=== PATIENT | male | born 1975 | race Caucasian/White ===

== ENCOUNTER 2018-05-18 04:35 | Emergency (ER) | payer OTHER ==
[2018-05-18 04:53] VITALS: BP 126/85; PULSE 60; O2SAT 98
[2018-05-18] MEDS ORDERED: TORAdol 30 mg Injection IM ONE (05:07)
[2018-05-18] MEDS ORDERED: TORAdol 30 mg Injection ONE (05:10)
--- NOTE | 2018-05-18 05:12 | ERPHSYRPT ---
- History of Present Illness Time Seen by Provider: 05/18/18 04:57 Source: patient Exam Limitations: no limitations Patient Subjective Stated Complaint: pt is alert and oriented. pt is ambulatory. pt states he has pain in his left ankle and dull ache in his left leg. pt also states right heel pain. pt rates pain as a 5/10 when resting. when putting pressure on feet he rates his pain a 9/10. no redness, swelling, or obvious deformity noted. pt stated this pain started 3 days ago and has progressively gotten worse. Triage Nursing Assessment: see above Physician History: 43-year-old white male arrives with complaint of pain in his left ankle and pain on his right heel plantar surface symptoms 2 days. Patient denies any injury he has not had any fevers he states he has been soaking his feet without improvement. Past medical history includes chronic back pain, also with a history of narcolepsy. Past surgical history patient apparently had a spur in his calf which caused him pain in the past. Timing/Duration: day(s) (2 days) Severity: moderate Modifying Factors: Improves With: movement, other (palpation) Associated Symptoms: No nausea, No vomiting, No abdominal pain, No shortness of breath, No heartburn, No diaphoresis, No cough, No chills, No chest pain, No fever, No headaches, No loss of appetite, No malaise, No rash, No syncope, No seizure, No weakness Allergies/Adverse Reactions: No Known Drug Allergies Allergy (Unverified 08/02/13 20:28) Home Medications: Dextroamphetamine/Amphetamine [Adderall 20 mg Tablet] 20 mg PO DAILY 05/18/18 [ History] Fexofenadine HCl [Maddy] 30 mg PO DAILY 05/18/18 [History] Modafinil 100 mg [Provigil 100MG Tablet] 100 mg PO DAILY 05/18/18 [History ] Hx Tetanus, Diphtheria Vaccination/Date Given: Yes Hx Influenza Vaccination/Date Given: Yes (2012) Hx Pneumococcal Vaccination/Date Given: No Immunizations Up to Date: Yes - Review of Systems Constitutional: No Fever, No Chills Eyes: No Symptoms Ears, Nose, & Throat: No Symptoms Respiratory: No Cough, No Dyspnea Cardiac: No Chest Pain, No Edema, No Syncope Abdominal/Gastrointestinal: No Abdominal Pain, No Nausea, No Vomiting, No Diarrhea Genitourinary Symptoms: No Dysuria Musculoskeletal: Arthralgias, Joint Pain, Other (left ankle pain and right heel pain 2 days), No Back Pain, No Neck Pain, No Deformity, No Fall, No Injury, No Joint Redness, No Joint Swelling, No Myalgias Skin: No Rash Neurological: No Dizziness, No Focal Weakness, No Sensory Changes Psychological: No Symptoms Endocrine: No Symptoms All Other Systems: Reviewed and Negative - Past Medical History Pertinent Past Medical History: Yes Neurological History: No Pertinent History ENT History: No Pertinent History Cardiac History: No Pertinent History Respiratory History: No Pertinent History Endocrine Medical History: No Pertinent History Musculoskeletal History: Other GI Medical History: No Pertinent History History: No Pertinent History Psycho-Social History: No Pertinent History Male Reproductive Disorders: No Pertinent History Other Medical History: Unsure of musculoskeletal hx - Past Surgical History Past Surgical History: Yes Neuro Surgical History: No Pertinent History Cardiac: No Pertinent History Respiratory: No Pertinent History Gastrointestinal: No Pertinent History Genitourinary: No Pertinent History Musculoskeletal: Other Male Surgical History: No Pertinent History Other Surgical History: left calf, bone spur in tendon - Social History Smoking Status: Never smoker Exposure to second hand smoke: No Drug Use: none Patient Lives Alone: No - Nursing Vital Signs Nursing Vital Signs: Initial Vital Signs Temperature 97.6 F 05/18/18 04:43 Pulse Rate 60 05/18/18 04:43 Respiratory Rate 16 05/18/18 04:43 Blood Pressure 126/85 05/18/18 04:43 O2 Sat by Pulse Oximetry 98 05/18/18 04:43 Pain Scale Pain Intensity 5 - Physical Exam General Appearance: no apparent distress, alert Eye Exam: PERRL/EOMI, eyes nml inspection Ears, Nose, Throat Exam: normal ENT inspection, TMs normal, pharynx normal, moist mucous membranes Neck Exam: normal inspection, non-tender, supple, full range of motion Respiratory Exam: normal breath sounds, lungs clear, No respiratory distress Cardiovascular Exam: regular rate/rhythm, normal heart sounds, normal peripheral pulses Gastrointestinal/Abdomen Exam: soft, normal bowel sounds, No tenderness, No mass Back Exam: normal inspection, normal range of motion, No CVA tenderness, No vertebral tenderness Extremity Exam: other (patient's left ankle tender with movement, dorsal pedal posterior tibial pulses are intact and symmetrical bilaterally full range of motion all toes, good capillary refill all toes, sensation intact to all toes, right healed tender with palpation plantar surface) Neurologic 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 spurring at insertion of achilles tendon) Left Ankle X-ray Interpretation: Interpreted by me (xray left ankle: no fractures or subluxation, spurring at insertion of achiles tendon.) Ordered Tests: Active Orders 24 hr Category Date Time Status ANKLE (3 VIEWS) Stat Exams 05/18/18 05:07 Taken FOOT (MINIMUM 3 VIEWS) Stat Exams 05/18/18 05:06 Taken Medication Summary Discontinued Medications Generic Name Dose Route Start Last Admin Trade Name Josh PRN Reason Stop Dose Admin Ketorolac Tromethamine 60 mg 05/18/18 05:07 05/18/18 05:24 Toradol 30 Mg Injection IM 05/18/18 05:08 60 mg STAT ONE Administration Ketorolac Tromethamine Confirm 05/18/18 05:10 Toradol 30 Mg Injection Administered 05/18/18 05:11 Dose 60 mg .ROUTE .STK-MED ONE - Progress Progress: improved Progress Note: 05/18/18 05:38 43-year-old white male who states that he has some type of spurring in his calf in the past. Arrives with complaint of pain in his left ankle posteriorly in the plantar surface of his right heel symptoms for 2-3 days. He denies any injury. On x-ray the patient's left ankle shows spurring at the insertion site of the Achilles into the calcaneus. Patient also with a small amount of spurring on x-ray of the patient's right foot. Patient is tender with palpation plantar surface of the right heel. Patient also with tenderness in the area posterior left ankle with palpation and movement. Both feet are downgoing with squeezing the calf. Will go ahead and encourage patient to use heel pads bilaterally. Patient is given Toradol 60 mg IM. Will write for a small amount of [place] for pain. Patient advised to rest his left ankle and right foot apply cool packs. Patient has an orthopedist in [place] also family doctor, Dr. Kyle he is to follow-up with either his family doctor or his orthopedist. 05/18/18 05:45 Inspect was queried on this patient. Patient does receive prescriptions for modafinil however I do not see any narcotic analgesics prescribed to this patient recently. 05/18/18 05:46 I did offer the patient crutches with weightbearing as tolerated on the left foot patient does not want this at this time. - Departure Time of Disposition: 05:41 Departure Disposition: Home Clinical Impression: Right foot pain Left ankle pain Qualifiers: Chronicity: acute Qualified Code(s): M25.572 - Pain in left ankle and joints of left foot Condition: Fair Critical Care Time: No Referrals: TONY KYLE MD [Primary Care Provider] - Additional Instructions: Return home cool packs to right heel left ankle 24-48 hours. Use heel pads bilaterally. Naprosyn as directed. [place] as directed. Follow-up with your family doctor or your orthopedist call and make an appointment. Return for acute distress or for severe symptoms. Your x-rays have been preliminarily read, they will be reread later today. He' ll be contacted if any discrepancies are noted. Prescriptions: Hydrocodone/Acetaminophen [[place] 5-325 Tablet] 1 tab PO Q4-6HPRN PRN #12 tablet MDD 6 tablets PRN Reason: Pain Naproxen 500 mg [Naprosyn 500 MG] 500 mg PO BID #20 tablet
--- NOTE | 2018-05-18 08:50 | XRAY ---
Indication: Pain 2 days. No known injury. Comparison: None 3 nonweightbearing views of the right foot demonstrates small posterior heel spur and tiny medial malleolar tip well circumscribed ossification either degenerative versus old injury. No other bony, articular, or soft tissue abnormalities.
--- NOTE | 2018-05-18 08:50 | XRAY ---
Indication: Pain. No known injury. Comparison: None 3 views of the left ankle demonstrates large posterior heel spur. No other bony, articular, or soft tissue abnormalities.
== END 2018-05-18 05:57 | disposition home or self-care (01) ==
LOC: ED 04:35
DX: M25.572 Pain in left ankle and joints of left foot (principal); M79.671 Pain in right foot; Z79.899 Other long term (current) drug therapy
CPT/HCPCS: 73610; 73630; 96372; 99284; J1885

== ENCOUNTER 2021-12-23 11:00 | Emergency (ER) | payer BC, MEDICARE ==
[2021-12-23] MEDS ORDERED: Zofran 4 MG/2 ML VIAL IV ONE (11:22)
[2021-12-23] MEDS ORDERED: SUBLIMAZE 100 MCG/2 ML IV ONE (11:22)
[2021-12-23] MEDS ORDERED: Sodium Chloride 0.9% 1000 ML 1,000 ML IV STA (11:22)
[2021-12-23] MEDS ORDERED: Sodium Chloride 0.9% 1000 ML 1,000 ML ONE (11:38)
[2021-12-23 11:48] LABS: Absolute Neutrophil Ct (ANC) 3.51 x10^3/uL (1.4-6.9); Basophil (Absolute #) 0.07 x10^3/uL (0-0.4); Eosinophil % 2.9 % (0.00-5.0); Eosinophil (Absolute #) 0.16 x10^3/uL (0-0.5); Hematocrit 40.7 % (42-50); Hemoglobin 13.3 g/dL (12.5-18.0); Lymphocyte (Absolute #) 1.22 x10^3/uL (1.0-4.6); Lymphocytes % 22.2 % (24.0-44.0); Mean Cell Volume 87.3 fL (78-100); Mean Corpuscular Hemoglobin 28.5 pg (26-32); Mean Corpuscular Hgb Concent. 32.7 g/dL (32-36); Mean Platelet Volume 11.1 fL (7.5-11.0); Monocyte (Absolute #) 0.45 x10^3/uL (0.0-1.3); Monocytes % 8.2 % (0.0-12.0); Neutrophil % 63.8 % (36.0-66.0); Platelet Count 183 x10^3/uL (150-450); Red Blood Count 4.66 x10^6/uL (4.1-5.6); Red Cell Distribution Width 14.2 % (11.5-14.0); White Blood Count 5.5 x10^3/uL (4.0-10.5)
[2021-12-23 11:59] LABS: Appearance CLEAR (CLEAR); Bilirubin NEGATIVE (NEGATIVE); Dipstick done @ ? MAIN LAB; Glucose NEGATIVE (NEGATIVE); Ketones NEGATIVE (NEGATIVE); Nitrite NEGATIVE (NEGATIVE); Ph 5.5 (5-6); Protein,Urine Dip NEGATIVE (Negative); RBC NEGATIVE Ery/ul (0-5); Specific Gravity 1.025 (1.005-1.025); Urobilinogen 0.2 mg/dL (0-1)
[2021-12-23 12:02] LABS: Mucus SLIGHT /HPF (NEGATIVE); RBC 0-2 /HPF (0-2); WBC 0-2 /HPF (0-5)
--- NOTE | 2021-12-23 12:03 | ERPHSYRPT ---
- History of Present Illness Time Seen by Provider: 12/23/21 11:20 Source: patient Exam Limitations: no limitations Patient Subjective Stated Complaint: Headache Triage Nursing Assessment: Patient ambulated back to ED and transferred self to bed. Patient A+O X 3. Patient's skin pink, warm and dry. Patient complains of headache on and off since Wednesday. Patient states he felt an "explosion" in between his temples on Wednesday and has had a dull headache every since. Patient also light sensitive. Patient denies dizziness, N/V. Physician History: Patient is a 46-year-old white male who presents with a complaint of an explosive headache which occurred on Wednesday it was bilateral between the mormonism areas pain was bilateral it was increased by strenuous activity. He complains of blurred vision and feeling off and he has had a dull headache since with some photophobia. He has never had a similar type headache. He says he had COVID in 2019 and has not felt well since. He stopped his ADHD medicine and has gained some weight and has been increasingly short of breath with exertion. Timing/Duration: day(s) (4) Quality: aching, other (Explosive pain) Head Pain Location: temporal Severity of Pain-Max: severe Severity of Pain-Current: moderate Recent Head Trauma: occasional headaches (This headache is not similar to any headache he has ever had.) Modifying Factors: Improves With: exposure to light, movement Associated Symptoms: light-headedness, sensitive to light Previous symptoms: no prior history Allergies/Adverse Reactions: No Known Drug Allergies Allergy (Verified 12/23/21 11:11) Home Medications: Fexofenadine HCl [Maddy] 30 mg PO DAILY 05/18/18 [History] Modafinil 100 mg [Provigil 100MG Tablet] 200 mg PO DAILY 05/18/18 [History] Naproxen 500 mg [Naprosyn 500 MG] 500 mg PO DAILY 12/23/21 [History] Hx Tetanus, Diphtheria Vaccination/Date Given: Yes Hx Influenza Vaccination/Date Given: No Hx Pneumococcal Vaccination/Date Given: No Immunizations Up to Date: Yes Travel Risk - International Travel Have you traveled outside of the country in past 3 weeks: No - Coronavirus Screening Are you exhibiting any of the following symptoms?: No Close contact with a COVID-19 positive Pt in past 14-21 Days: No - Vaccine Status Have you recieved a Covid-19 vaccination: Yes 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 - Vaccination Dates Date of 2cond Vaccination (if applicable): na - Review of Systems Constitutional: No Fever, No Chills Eyes: Eye Pain, Photophobia Ears, Nose, & Throat: No Symptoms Respiratory: No Cough, No Dyspnea Cardiac: No Chest Pain, No Edema, No Syncope Abdominal/Gastrointestinal: No Abdominal Pain, No Nausea, No Vomiting, No Diarrhea Genitourinary Symptoms: No Dysuria Musculoskeletal: No Back Pain, No Neck Pain Skin: No Rash Neurological: Headache, No Dizziness, No Focal Weakness, No Sensory Changes Psychological: No Symptoms Endocrine: No Symptoms All Other Systems: Reviewed and Negative - Past Medical History Pertinent Past Medical History: Yes Neurological History: No Pertinent History ENT History: No Pertinent History Cardiac History: No Pertinent History Respiratory History: No Pertinent History Endocrine Medical History: No Pertinent History Musculoskeletal History: Other GI Medical History: No Pertinent History History: No Pertinent History Psycho-Social History: No Pertinent History Male Reproductive Disorders: No Pertinent History Other Medical History: Unsure of musculoskeletal hx - Past Surgical History Past Surgical History: Yes Neuro Surgical History: No Pertinent History Cardiac: No Pertinent History Respiratory: No Pertinent History Gastrointestinal: No Pertinent History Genitourinary: No Pertinent History Musculoskeletal: Other Male Surgical History: No Pertinent History Other Surgical History: left calf, bone spur in tendon - Social History Smoking Status: Never smoker Exposure to second hand smoke: No Drug Use: none Patient Lives Alone: No - Nursing Vital Signs Nursing Vital Signs: Initial Vital Signs Temperature 97.2 F 12/23/21 11:13 Pulse Rate 59 L 12/23/21 11:13 Respiratory Rate 18 12/23/21 11:13 Blood Pressure 163/111 12/23/21 11:13 O2 Sat by Pulse Oximetry 97 12/23/21 11:13 Pain Scale Pain Intensity 6 - Physical Exam General Appearance: mild distress Eye Exam: PERRL/EOMI Ears, Nose, Throat Exam: normal ENT inspection, moist mucous membranes Neck Exam: normal inspection, supple, full range of motion, No meningismus Respiratory Exam: normal breath sounds, lungs clear Cardiovascular Exam: regular rate/rhythm, normal heart sounds Gastrointestinal/Abdominal Exam: soft, No tenderness, No distention Back Exam: normal inspection, normal range of motion Mental Status Exam: alert, 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, 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: normal speech, PERRL, No facial droop Coordination/Gait Exam: normal finger to nose, normal cerebellar function Motor/Sensory Exam: no motor deficit, no sensory deficit Skin Exam: normal color, warm, dry, No rash SpO2 Interpretation: normal SpO2: 97 O2 Delivery: Room Air - Course Nursing assessment & vital signs reviewed: Yes - Radiology Exams Chest X-ray Interpretation: Negative - CT Exams Head CT Interpretation: Other (Negative) Ordered Tests: Active Orders 24 hr Category Date Time Status EKG-ER Only STAT Care 12/23/21 11:24 Active IV Insertion STAT Care 12/23/21 11:22 Active CHEST 1 VIEW (PORTABLE) Stat Exams 12/23/21 11:59 Completed HEAD WITHOUT CONTRAST [CT] Stat Exams 12/23/21 11:54 Completed CBC W DIFF Stat Lab 12/23/21 11:35 Completed CMP Stat Lab 12/23/21 11:35 Completed Erythrocyte Sedimentation Rate Stat Lab 12/23/21 11:35 Completed Lactic Acid Urgent Lab 12/23/21 11:40 Completed TROPONIN Q3H Lab 12/23/21 11:35 Completed TROPONIN Q3H Lab 12/23/21 14:30 Ordered TROPONIN Q3H Lab 12/23/21 17:30 Ordered TROPONIN Q3H Lab 12/23/21 20:30 Ordered TROPONIN Q3H Lab 12/23/21 23:30 Ordered UA W/RFX CULTURE Stat Lab 12/23/21 11:29 Completed Urine Triage Profile Stat Lab 12/23/21 11:29 Completed Medication Summary Discontinued Medications Generic Name Dose Route Start Last Admin Trade Name Josh PRN Reason Stop Dose Admin Fentanyl Citrate 75 mcg 12/23/21 11:22 12/23/21 11:44 Fentanyl Citrate 100 Mcg/2 Ml* Vial IV 12/23/21 11:23 Not Given STAT ONE Sodium Chloride 1,000 mls @ 999 mls/hr 12/23/21 11:22 12/23/21 12:43 Sodium Chloride 0.9% 1000 Ml IV 12/23/21 12:22 Infused .Q1H1M STA Infusion Sodium Chloride Confirm 12/23/21 11:38 Sodium Chloride 0.9% 1000 Ml Administered 12/23/21 11:39 Dose 1,000 mls @ ud .ROUTE .STK-MED ONE Ondansetron HCl 4 mg 12/23/21 11:22 12/23/21 11:44 Ondansetron Hcl 4 Mg/2 Ml Vial IV 12/23/21 11:23 Not Given STAT ONE Lab/Rad Data: Laboratory Result Diagrams 12/23/21 11:35 12/23/21 11:35 Laboratory Results 12/23/21 12/23/21 12/23/21 Range/Units 11:40 11:35 11:35 WBC (4.0-10.5) x10^3/uL RBC (4.1-5.6) x10^6/uL Hgb (12.5-18.0) g/dL Hct (42-50) % MCV (78-100) fL MCH (26-32) pg MCHC (32-36) g/dL RDW (11.5-14.0) % Plt Count (150-450) x10^3/uL MPV (7.5-11.0) fL Gran % (36.0-66.0) % Immature Gran % (Auto) (0.00-0.4) % Nucleat RBC Rel Count (0.00-0.1) % Eos # (Auto) (0-0.5) x10^3/uL Immature Gran # (Auto) (0.00-0.03) x10^3u/L Absolute Lymphs (auto) (1.0-4.6) x10^3/uL Absolute Monos (auto) (0.0-1.3) x10^3/uL Absolute Nucleated RBC (0.00-0.01) x10^3u/L Lymphocytes % (24.0-44.0) % Monocytes % (0.0-12.0) % Eosinophils % (0.00-5.0) % Basophils % (0.0-0.4) % Absolute Granulocytes (1.4-6.9) x10^3/uL Basophils # (0-0.4) x10^3/uL ESR (0-15) mm/hr Sodium (137-145) mmol/L Potassium (3.5-5.1) mmol/L Chloride (98-107) mmol/L Carbon Dioxide (22-30) mmol/L Anion Gap (5-15) MEQ/L BUN (9-20) mg/dL Creatinine (0.66-1.25) mg/dL Estimated GFR ML/MIN Glucose (74-106) mg/dL Lactic Acid 0.9 (0.4-2.0) Calcium (8.4-10.2) mg/dL Total Bilirubin (0.2-1.3) mg/dL AST (17-59) U/L ALT (0-50) U/L Alkaline Phosphatase (38-126) U/L Troponin I < 0.012 (0.000-0.034) ng/mL Serum Total Protein (6.3-8.2) g/dL Albumin (3.5-5.0) g/dL Urinalys Dipstick Clnc Urine Color (YELLOW) Urine Appearance (CLEAR) Urine pH (5-6) Ur Specific [place] (1.005-1.025) POC Urine Protein Conf (Negative) Urine Ketones (NEGATIVE) Urine Nitrite (NEGATIVE) Urine Bilirubin (NEGATIVE) Urine Urobilinogen (0-1) mg/dL Urine Leukocytes (NEGATIVE) Urine WBC (Auto) (0-5) /HPF Urine RBC (Auto) (0-2) /HPF U Epithel Cells (Auto) Urine Bacteria (Auto) Urine RBC (0-5) Gerardo/ul Urine Mucus (Auto) (NEGATIVE) /HPF Ur Culture Indicated? Urine Glucose (NEGATIVE) mg/dL Urine Opiates Level (NEGATIVE) Ur Methadone (NEGATIVE) Urine Barbiturates (NEGATIVE) Ur Phencyclidine (PCP) (NEGATIVE) Urine Amphetamine (NEGATIVE) U Benzodiazepine Level (NEGATIVE) Urine Marijuana (THC) (NEGATIVE) Influenza Type A Ag NEGATIVE (NEGATIVE) Influenza Type B Ag NEGATIVE (NEGATIVE) RSV (PCR) NEGATIVE (Negative) SARS-CoV-2 (PCR) NEGATIVE (NEGATIVE) 12/23/21 12/23/21 12/23/21 Range/Units 11:35 11:35 11:29 WBC 5.5 (4.0-10.5) x10^3/uL RBC 4.66 (4.1-5.6) x10^6/uL Hgb 13.3 (12.5-18.0) g/dL Hct 40.7 L (42-50) % MCV 87.3 (78-100) fL MCH 28.5 (26-32) pg MCHC 32.7 (32-36) g/dL RDW 14.2 H (11.5-14.0) % Plt Count 183 (150-450) x10^3/uL MPV 11.1 H (7.5-11.0) fL Gran % 63.8 (36.0-66.0) % Immature Gran % (Auto) 1.6 H (0.00-0.4) % Nucleat RBC Rel Count 0.0 (0.00-0.1) % Eos # (Auto) 0.16 (0-0.5) x10^3/uL Immature Gran # (Auto) 0.09 H (0.00-0.03) x10^3u/L Absolute Lymphs (auto) 1.22 (1.0-4.6) x10^3/uL Absolute Monos (auto) 0.45 (0.0-1.3) x10^3/uL Absolute Nucleated RBC 0.00 (0.00-0.01) x10^3u/L Lymphocytes % 22.2 L (24.0-44.0) % Monocytes % 8.2 (0.0-12.0) % Eosinophils % 2.9 (0.00-5.0) % Basophils % 1.3 (0.0-0.4) % Absolute Granulocytes 3.51 (1.4-6.9) x10^3/uL Basophils # 0.07 (0-0.4) x10^3/uL ESR 13 (0-15) mm/hr Sodium 137 (137-145) mmol/L Potassium 4.5 (3.5-5.1) mmol/L Chloride 107 (98-107) mmol/L Carbon Dioxide 20 L (22-30) mmol/L Anion Gap 15.2 H (5-15) MEQ/L BUN 15 (9-20) mg/dL Creatinine 0.96 (0.66-1.25) mg/dL Estimated GFR > 60.0 ML/MIN Glucose 121 H (74-106) mg/dL Lactic Acid (0.4-2.0) Calcium 9.4 (8.4-10.2) mg/dL Total Bilirubin 0.50 (0.2-1.3) mg/dL AST 47 (17-59) U/L ALT 59 H (0-50) U/L Alkaline Phosphatase 76 (38-126) U/L Troponin I (0.000-0.034) ng/mL Serum Total Protein 7.4 (6.3-8.2) g/dL Albumin 4.2 (3.5-5.0) g/dL Urinalys Dipstick Clnc MAIN LAB Urine Color YELLOW (YELLOW) Urine Appearance CLEAR (CLEAR) Urine pH 5.5 (5-6) Ur Specific [place] 1.025 (1.005-1.025) POC Urine Protein Conf NEGATIVE (Negative) Urine Ketones NEGATIVE (NEGATIVE) Urine Nitrite NEGATIVE (NEGATIVE) Urine Bilirubin NEGATIVE (NEGATIVE) Urine Urobilinogen 0.2 (0-1) mg/dL Urine Leukocytes NEGATIVE (NEGATIVE) Urine WBC (Auto) 0-2 (0-5) /HPF Urine RBC (Auto) 0-2 (0-2) /HPF U Epithel Cells (Auto) Not Reportable Urine Bacteria (Auto) Not Reportable Urine RBC NEGATIVE (0-5) Gerardo/ul Urine Mucus (Auto) SLIGHT (NEGATIVE) /HPF Ur Culture Indicated? NO Urine Glucose NEGATIVE (NEGATIVE) mg/dL Urine Opiates Level (NEGATIVE) Ur Methadone (NEGATIVE) Urine Barbiturates (NEGATIVE) Ur Phencyclidine (PCP) (NEGATIVE) Urine Amphetamine (NEGATIVE) U Benzodiazepine Level (NEGATIVE) Urine Marijuana (THC) (NEGATIVE) Influenza Type A Ag (NEGATIVE) Influenza Type B Ag (NEGATIVE) RSV (PCR) (Negative) SARS-CoV-2 (PCR) (NEGATIVE) 12/23/21 Range/Units 11:29 WBC (4.0-10.5) x10^3/uL RBC (4.1-5.6) x10^6/uL Hgb (12.5-18.0) g/dL Hct (42-50) % MCV (78-100) fL MCH (26-32) pg MCHC (32-36) g/dL RDW (11.5-14.0) % Plt Count (150-450) x10^3/uL MPV (7.5-11.0) fL Gran % (36.0-66.0) % Immature Gran % (Auto) (0.00-0.4) % Nucleat RBC Rel Count (0.00-0.1) % Eos # (Auto) (0-0.5) x10^3/uL Immature Gran # (Auto) (0.00-0.03) x10^3u/L Absolute Lymphs (auto) (1.0-4.6) x10^3/uL Absolute Monos (auto) (0.0-1.3) x10^3/uL Absolute Nucleated RBC (0.00-0.01) x10^3u/L Lymphocytes % (24.0-44.0) % Monocytes % (0.0-12.0) % Eosinophils % (0.00-5.0) % Basophils % (0.0-0.4) % Absolute Granulocytes (1.4-6.9) x10^3/uL Basophils # (0-0.4) x10^3/uL ESR (0-15) mm/hr Sodium (137-145) mmol/L Potassium (3.5-5.1) mmol/L Chloride (98-107) mmol/L Carbon Dioxide (22-30) mmol/L Anion Gap (5-15) MEQ/L BUN (9-20) mg/dL Creatinine (0.66-1.25) mg/dL Estimated GFR ML/MIN Glucose (74-106) mg/dL Lactic Acid (0.4-2.0) Calcium (8.4-10.2) mg/dL Total Bilirubin (0.2-1.3) mg/dL AST (17-59) U/L ALT (0-50) U/L Alkaline Phosphatase (38-126) U/L Troponin I (0.000-0.034) ng/mL Serum Total Protein (6.3-8.2) g/dL Albumin (3.5-5.0) g/dL Urinalys Dipstick Clnc Urine Color (YELLOW) Urine Appearance (CLEAR) Urine pH (5-6) Ur Specific [place] (1.005-1.025) POC Urine Protein Conf (Negative) Urine Ketones (NEGATIVE) Urine Nitrite (NEGATIVE) Urine Bilirubin (NEGATIVE) Urine Urobilinogen (0-1) mg/dL Urine Leukocytes (NEGATIVE) Urine WBC (Auto) (0-5) /HPF Urine RBC (Auto) (0-2) /HPF U Epithel Cells (Auto) Urine Bacteria (Auto) Urine RBC (0-5) Gerardo/ul Urine Mucus (Auto) (NEGATIVE) /HPF Ur Culture Indicated? Urine Glucose (NEGATIVE) mg/dL Urine Opiates Level NEGATIVE (NEGATIVE) Ur Methadone NEGATIVE (NEGATIVE) Urine Barbiturates NEGATIVE (NEGATIVE) Ur Phencyclidine (PCP) NEGATIVE (NEGATIVE) Urine Amphetamine NEGATIVE (NEGATIVE) U Benzodiazepine Level NEGATIVE (NEGATIVE) Urine Marijuana (THC) NEGATIVE (NEGATIVE) Influenza Type A Ag (NEGATIVE) Influenza Type B Ag (NEGATIVE) RSV (PCR) (Negative) SARS-CoV-2 (PCR) (NEGATIVE) - Progress Progress: improved Air Movement: good Blood Culture(s) Obtained: No Antibiotics given: Yes - Departure Departure Disposition: Home Clinical Impression: Sinusitis Condition: Stable Critical Care Time: No Referrals: TONY KYLE MD [Primary Care Provider] - Follow up/PCP as directed Instructions: Sinus Headache (DC) Prescriptions: Cephalexin Mh 500 mg [Keflex 500 mg] 500 mg PO QID 10 Days #40 cap Diclofenac Sodium 50 mg [Voltaren 50 mg] 50 mg PO TID 5 Days #15 cap
[2021-12-23 12:09] LABS: Erythrocyte Sedimentation Rate 13 mm/hr (0-15)
[2021-12-23 12:09] LABS: Urine Cultured Indicated? NO
[2021-12-23 12:11] LABS: ALBUMIN 4.2 g/dL (3.5-5.0); ALKALINE PHOSPHATASE 76 U/L (38-126); ANION GAP 15.2 MEQ/L (5-15); BLOOD UREA NITROGEN 15 mg/dL (9-20); CHLORIDE 107 mmol/L (98-107); Calcium 9.4 mg/dL (8.4-10.2); Carbon Dioxide 20 mmol/L (22-30); Creatinine 1 0.96 mg/dL (0.66-1.25); EST GLOMERULAR FILTRATION RATE > 60.0 ML/MIN; Glucose 121 mg/dL (74-106); Potassium 4.5 mmol/L (3.5-5.1); SGOT/AST 47 U/L (17-59); SGPT/ALT 59 U/L (0-50); SODIUM 137 mmol/L (137-145); Total Protein 7.4 g/dL (6.3-8.2)
--- NOTE | 2021-12-23 12:17 | XRAY ---
Indication: Headache 4 days. No known injury. Multiple contiguous axial images obtained through the head without contrast. Comparison: None Normal appearing brain parenchyma, ventricles, and bony calvarium for patient's age. 5 mm left maxillary sinus polyp/retention cyst and minimal mucosal thickening both maxillary sinuses. Mastoid air cells are clear. Impression: Normal CT head without contrast exam. Incidental paranasal sinus disease.
--- NOTE | 2021-12-23 12:17 | XRAY ---
Indication: Headache 4 days. Comparison: March 08, 2021 Portable chest remains clear. Heart remains upper limits normal for AP portable technique. Bony thorax intact. No new/acute findings.
[2021-12-23 12:20] LABS: Amphetamine,Urine NEGATIVE (NEGATIVE); Barbiturate,Urine NEGATIVE (NEGATIVE); Benzodiazepine,Urine NEGATIVE (NEGATIVE); Methadone,Urine NEGATIVE (NEGATIVE); Opiate,Urine NEGATIVE (NEGATIVE); PCP,Urine NEGATIVE (NEGATIVE); THC,Urine NEGATIVE (NEGATIVE)
[2021-12-23 12:25] LABS: INFLUENZA A NEGATIVE (NEGATIVE); INFLUENZA B NEGATIVE (NEGATIVE); RESPIRATORY SYNCTIAL VIRUS NEGATIVE (Negative); SARS-CoV-2 Xpert Express NEGATIVE (NEGATIVE)
[2021-12-23] MEDS ORDERED: ROCEPHIN 1 Gm-D5w 50 ml Bag** 1 G/50 ML IVPB IV STA (13:10)
[2021-12-23] MEDS ORDERED: ROCEPHIN 1 Gm-D5w 50 ml Bag** 1 G/50 ML IVPB IV ONE (13:10)
[2021-12-23 13:35] VITALS: BP 132/79; PULSE 59; O2SAT 99
== END 2021-12-23 13:35 | disposition home or self-care (01) ==
LOC: ED 11:00
DX: J32.0 Chronic maxillary sinusitis (principal); R51.9 Headache, unspecified; H53.8 Other visual disturbances; Z86.16 Personal history of COVID-19; Z79.899 Other long term (current) drug therapy
CPT/HCPCS: 0241U; 36000; 36415; 70450; 71045; 80053; 80307; 81015; 83605; 84484; 85025; 85652; 93005; 96360; 96374; 99284; J0696

== ENCOUNTER 2022-10-05 13:27 | Emergency (ER) | payer BC, MEDICARE ==
--- NOTE | 2022-10-05 13:38 | ERPHSYRPT ---
- History of Present Illness Time Seen by Provider: 10/05/22 13:38 Historian: patient Exam Limitations: no limitations Physician History: This is a 47-year-old white male who is never had any abdominal surgeries in the past and presents with right flank pain that began a few days ago but noticed radiation into his right lower quadrant into the right testicle area. It was much worse at 3:00 in the morning was sudden onset and woke him up. The pain has been intermittently worse but has never completely resolved. He has not noticed any hematuria. He has felt nausea and had vomiting episode with the pain was very severe and intense. He denies chest pain. He denies shortness of breath. Timing/Duration: today Activities at Onset: none Abdominal Pain Onset Location: RLQ, flank (Right), other (Pain into the right testicle) Pain Radiation: other (Pain into the right testicle) Severity of Pain-Max: moderate Severity of Pain-Current: mild (Moderate) Modifying Factors: Improves With: nothing Associated Symptoms: nausea, testicular pain (Right side), vomiting, No chest pain, No diarrhea, No fever/chills, No headache, No neck pain Previous symptoms: no prior history Allergies/Adverse Reactions: No Known Drug Allergies Allergy (Verified 10/05/22 13:45) Home Medications: Fexofenadine HCl [Maddy] 30 mg PO DAILY 05/18/18 [History] Modafinil 100 mg [Provigil 100MG Tablet] 200 mg PO DAILY 05/18/18 [History] Indomethacin 25 mg [Indocin 25 MG] 1 tab PO TID 10/05/22 [History] Hx Tetanus, Diphtheria Vaccination/Date Given: Yes Hx Influenza Vaccination/Date Given: No Hx Pneumococcal Vaccination/Date Given: No Travel Risk - International Travel Have you traveled outside of the country in past 3 weeks: No - Coronavirus Screening Are you exhibiting any of the following symptoms?: No Close contact with a COVID-19 positive Pt in past 14-21 Days: No - Vaccine Status Have you recieved a Covid-19 vaccination: Yes Advertising Executive: Moderna - Vaccination Dates Date of 2cond Vaccination (if applicable): na - Review of Systems Constitutional: No Symptoms Eyes: No Symptoms Ears, Nose, & Throat: No Symptoms Respiratory: No Symptoms Cardiac: No Symptoms Abdominal/Gastrointestinal: Abdominal Pain (Right lower quadrant) Genitourinary Symptoms: Flank Pain (Right flank), Testicle Pain (Right testicle) Musculoskeletal: No Symptoms Skin: No Symptoms Neurological: No Symptoms Psychological: No Symptoms Endocrine: No Symptoms Hematologic/Lymphatic: No Symptoms Immunological/Allergic: No Symptoms All Other Systems: Reviewed and Negative - Past Medical History Pertinent Past Medical History: Yes Neurological History: No Pertinent History ENT History: No Pertinent History Cardiac History: No Pertinent History Respiratory History: No Pertinent History Endocrine Medical History: No Pertinent History Musculoskeletal History: Other GI Medical History: No Pertinent History History: No Pertinent History Psycho-Social History: No Pertinent History Male Reproductive Disorders: No Pertinent History Other Medical History: Unsure of musculoskeletal hx - Past Surgical History Past Surgical History: Yes Neuro Surgical History: No Pertinent History Cardiac: No Pertinent History Respiratory: No Pertinent History Gastrointestinal: No Pertinent History Genitourinary: No Pertinent History Musculoskeletal: Other Male Surgical History: No Pertinent History Other Surgical History: left calf, bone spur in tendon - Social History Smoking Status: Never smoker Exposure to second hand smoke: No Drug Use: none Patient Lives Alone: No - Nursing Vital Signs Nursing Vital Signs: Initial Vital Signs Temperature 98.1 F 10/05/22 13:38 Pulse Rate 72 10/05/22 13:38 Respiratory Rate 21 10/05/22 13:38 Blood Pressure 141/89 10/05/22 13:38 O2 Sat by Pulse Oximetry 99 10/05/22 13:38 Pain Scale Pain Intensity 6 - Physical Exam General Appearance: no apparent distress, alert, anxiety, obese Eye Exam: PERRL/EOMI, eyes nml inspection Ears, Nose, Throat Exam: normal ENT inspection, moist mucous membranes Neck Exam: normal inspection, non-tender, supple, full range of motion Respiratory Exam: normal breath sounds, lungs clear, airway intact, No chest tenderness, No respiratory distress Cardiovascular Exam: regular rate/rhythm, normal heart sounds, normal peripheral pulses Gastrointestinal/Abdomen Exam: soft, normal bowel sounds, tenderness (Right lower quadrant), guarding (Right lower quadrant), No rebound Rectal Exam: not done Back Exam: normal inspection, normal range of motion, CVA tenderness (Right side), No vertebral tenderness Extremity Exam: normal inspection, normal range of motion, pelvis stable Neurologic Exam: alert, 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, cooperative, 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 as tested, normal mood/affect, nml cerebellar function, nml station & gait, sensation nml Skin Exam: normal color, warm, dry Lymphatic Exam: No adenopathy SpO2 Interpretation: normal - Course Nursing assessment & vital signs reviewed: Yes Ordered Tests: Active Orders 24 hr Category Date Time Status IV Insertion STAT Care 10/05/22 15:00 Active ABDOMEN AND PELVIS W/0 CONTRAS [CT] Stat Exams 10/05/22 15:00 Completed AMYLASE Stat Lab 10/05/22 15:32 Completed CBC W DIFF Stat Lab 10/05/22 15:32 Completed CMP Stat Lab 10/05/22 15:32 Completed CULTURE,URINE Stat Lab 10/05/22 15: Received LIPASE Stat Lab 10/05/22 15:32 Completed UA W/RFX UR CULTURE Stat Lab 10/05/22 15:27 Completed Medication Summary Discontinued Medications Generic Name Dose Route Start Last Admin Trade Name Freq PRN Reason Stop Dose Admin Hydromorphone HCl 1 mg 10/05/22 15:00 Hydromorphone 1 Mg/1ml Inj IV 10/05/22 15:01 STAT ONE Sodium Chloride 1,000 mls @ 999 mls/hr 10/05/22 15:00 10/05/22 16:32 Sodium Chloride 0.9% 1000 Ml IV 10/05/22 16:00 Infused .Q1H1M STA Infusion Sodium Chloride Confirm 10/05/22 15:23 Sodium Chloride 0.9% 1000 Ml Administered 10/05/22 15:24 Dose 1,000 mls @ ud .ROUTE .STK-MED ONE Ketorolac Tromethamine 30 mg 10/05/22 15:00 Ketorolac Tromethamine 30 Mg/Ml Inj IV 10/05/22 15:01 STAT ONE Ondansetron HCl 4 mg 10/05/22 15:00 Ondansetron Hcl 4 Mg/2 Ml Vial IV 10/05/22 15:01 STAT ONE Lab/Rad Data: Laboratory Result Diagrams 10/05/22 15:32 10/05/22 15:32 Laboratory Results 10/05/22 10/05/22 10/05/22 Range/Units 15:32 15:32 15:27 WBC 7.9 (4.0-10.5) x10^3/uL RBC 4.63 (4.1-5.6) x10^6/uL Hgb 12.6 (12.5-18.0) g/dL Hct 40.0 L (42-50) % MCV 86.4 (78-100) fL MCH 27.2 (26-32) pg MCHC 31.5 L (32-36) g/dL RDW 14.3 H (11.5-14.0) % Plt Count 234 (150-450) x10^3/uL MPV 10.6 (7.5-11.0) fL Gran % 76.6 H (36.0-66.0) % Immature Gran % (Auto) 0.8 H (0.00-0.4) % Nucleat RBC Rel Count 0.0 (0.00-0.1) % Eos # (Auto) 0.20 (0-0.5) x10^3/uL Immature Gran # (Auto) 0.06 H (0.00-0.03) x10^3u/L Absolute Lymphs (auto) 1.07 (1.0-4.6) x10^3/uL Absolute Monos (auto) 0.46 (0.0-1.3) x10^3/uL Absolute Nucleated RBC 0.00 (0.00-0.01) x10^3u/L Lymphocytes % 13.6 L (24.0-44.0) % Monocytes % 5.9 (0.0-12.0) % Eosinophils % 2.5 (0.00-5.0) % Basophils % 0.6 (0.0-0.4) % Absolute Granulocytes 6.01 (1.4-6.9) x10^3/uL Basophils # 0.05 (0-0.4) x10^3/uL Sodium 141 (137-145) mmol/L Potassium 4.3 (3.5-5.1) mmol/L Chloride 104 (98-107) mmol/L Carbon Dioxide 27 (22-30) mmol/L Anion Gap 14.7 (5-15) MEQ/L BUN 17 (9-20) mg/dL Creatinine 0.99 (0.66-1.25) mg/dL Estimated GFR > 60.0 ML/MIN Glucose 108 H (74-106) mg/dL Calcium 9.1 (8.4-10.2) mg/dL Total Bilirubin 0.40 (0.2-1.3) mg/dL AST 24 (17-59) U/L ALT 34 (0-50) U/L Alkaline Phosphatase 80 (38-126) U/L Serum Total Protein 7.5 (6.3-8.2) g/dL Albumin 4.2 (3.5-5.0) g/dL Amylase 80 (30-110) U/L Lipase 127 (23-300) U/L Urine Color Yellow (Yellow) Urine Appearance Clear (Clear) Urine pH 6.0 (4.6-8.0) Ur Specific [place] 1.015 (1.005-1.030) Urine Protein Negative (Negative) Urine Glucose (UA) Negative (Negative) mg/dL Urine Ketones Negative (Negative) Urine Blood Moderate A (Negative) Urine Nitrite Negative (Negative) Urine Bilirubin Negative (Negative) Urine Urobilinogen 0.2 (0.2) mg/dL Ur Leukocyte Esterase Trace A (Negative) U Hyaline Cast (Auto) NONE SEEN (0-2) /LPF Urine Microscopic RBC 21-50 A (0-5) /HPF Urine Microscopic WBC 0-2 (0-5) /HPF Ur Epithelial Cells None Seen (None Seen) /HPF Urine Bacteria None Seen (None Seen) /HPF Urine Culture Reflexed YES (NO) - Progress Progress: improved, pain not gone completely, re-examined Progress Note: 10/05/22 16:33 CT scan of the abdomen pelvis without contrast shows a 3 to 4 mm distal right ureteral calculus with minimal hydronephrosis. This patient's medical issue is 1 of moderate complexity. The level of complexity and the work-up performed based on review of the patient's past medical history, review of the patient's medication list, review of the patient's drug allergy list, history present illness and physical findings on examination. Work-up includes urinalysis, placement of intravenous line, infusion of 1 L of normal saline solution, CBC, CMP, amylase, lipase. The above-stated work-up results were reviewed by me and interpreted by me. The patient has a distal ureteral calculus that has a minimal obstructive uropathy present. We will discharge the patient home with prescription for Flomax and Percocet 5/325. Patient is to continue drinking clear liquids 10/05/22 16:37 CT scan of the abdomen pelvis also mentions that the appendix is visualized and normal. Counseled pt/family regarding: lab results, diagnosis, need for follow-up, rad results Medical Desision Making - Discussion of managment Agreed on:: Treatment plan, need for follow-up - Diagnostic Testing Diagnostic test were ordered, analyzed, and reviewed by me: Yes Radiological Interpretation: Reviewed by me, Teleradiologist Report - Risk of complications The pt has a mod risk of morbidity or mortality based on: Need for prescription drug management - Departure Departure Disposition: Home Clinical Impression: Right ureteral calculus Condition: Stable Critical Care Time: No Referrals: TONY KYLE MD [Primary Care Provider] - Follow up/PCP as directed Additional Instructions: Drink plenty of clear liquids. Take your usual medication as prescribed. Take your new medication as prescribed. Follow-up with your primary care provider for further evaluation management. Prescriptions: Oxycodone HCl/Acetaminophen [Percocet 5-325 mg Tablet] 1 each PO Q8H PRN PRN #6 tablet MDD 3 PRN Reason: Moderate To Severe Pain Tamsulosin HCl 0.4 mg [Flomax 0.4 MG] 0.4 mg PO DAILY #7 cap
[2022-10-05 13:45] VITALS: BP 141/89; PULSE 72; O2SAT 99
[2022-10-05] MEDS ORDERED: TORAdol 30 mg Injection IV ONE (15:00)
[2022-10-05] MEDS ORDERED: Hydromorphone 1 mg/ml Injection IV ONE (15:00)
[2022-10-05] MEDS ORDERED: Zofran 4 MG/2 ML VIAL IV ONE (15:00)
[2022-10-05] MEDS ORDERED: Sodium Chloride 0.9% 1000 ML 1,000 ML IV STA (15:00)
[2022-10-05] MEDS ORDERED: Sodium Chloride 0.9% 1000 ML 1,000 ML ONE (15:23)
[2022-10-05 15:30] LABS: Absolute Neutrophil Ct (ANC) 6.01 x10^3/uL (1.4-6.9); BASOPHIL % 0.6 % (0.0-0.4); Basophil (Absolute #) 0.05 x10^3/uL (0-0.4); Eosinophil % 2.5 % (0.00-5.0); Hemoglobin 12.6 g/dL (12.5-18.0); IMMATURE GRAN # 0.06 x10^3u/L (0.00-0.03); IMMATURE GRAN % 0.8 % (0.00-0.4); Lymphocyte (Absolute #) 1.07 x10^3/uL (1.0-4.6); Lymphocytes % 13.6 % (24.0-44.0); Mean Cell Volume 86.4 fL (78-100); Mean Corpuscular Hemoglobin 27.2 pg (26-32); Mean Corpuscular Hgb Concent. 31.5 g/dL (32-36); Mean Platelet Volume 10.6 fL (7.5-11.0); Monocyte (Absolute #) 0.46 x10^3/uL (0.0-1.3); Monocytes % 5.9 % (0.0-12.0); Neutrophil % 76.6 % (36.0-66.0); Platelet Count 234 x10^3/uL (150-450); Red Blood Count 4.63 x10^6/uL (4.1-5.6); Red Cell Distribution Width 14.3 % (11.5-14.0); White Blood Count 7.9 x10^3/uL (4.0-10.5)
[2022-10-05 15:35] LABS: Appearance Clear (Clear); Bacteria None Seen /HPF (None Seen); Bilirubin Negative (Negative); Blood Moderate (Negative); Epithelial Cells None Seen /HPF (None Seen); Glucose, Urine Negative (Negative); Hyaline Casts NONE SEEN /LPF (0-2); Ketones Negative (Negative); Leukocyte Esterase Trace (Negative); Nitrite Negative (Negative); Protein,Urine Dip Negative (Negative); RBC 21-50 /HPF (0-5); Specific Gravity 1.015 (1.005-1.030); Urobilinogen 0.2 mg/dL (0.2); WBC 0-2 /HPF (0-5)
[2022-10-05 15:36] LABS: ADD URINE CULTURE? YES (NO)
[2022-10-05 16:04] LABS: ALBUMIN 4.2 g/dL (3.5-5.0); ALKALINE PHOSPHATASE 80 U/L (38-126); AMYLASE 80 U/L (30-110); ANION GAP 14.7 MEQ/L (5-15); BLOOD UREA NITROGEN 17 mg/dL (9-20); CHLORIDE 104 mmol/L (98-107); Calcium 9.1 mg/dL (8.4-10.2); Carbon Dioxide 27 mmol/L (22-30); Creatinine 1 0.99 mg/dL (0.66-1.25); EST GLOMERULAR FILTRATION RATE > 60.0 ML/MIN; Glucose 108 mg/dL (74-106); LIPASE 127 U/L (23-300); Potassium 4.3 mmol/L (3.5-5.1); SGOT/AST 24 U/L (17-59); SGPT/ALT 34 U/L (0-50); SODIUM 141 mmol/L (137-145); Total Protein 7.5 g/dL (6.3-8.2)
--- NOTE | 2022-10-05 16:23 | XRAY ---
Indication: Right flank/right lower quadrant pain. Nausea and vomiting. Multiple contiguous axial images obtained through the abdomen and pelvis without contrast using renal stone protocol. Comparison: None Lung bases clear. Heart not enlarged. Distal right ureter demonstrates 3-4 mm calculus approximately 5 cm proximal to UVJ. Proximal right ureter minimally prominent up to 6 mm along with minimal hydronephrosis favors partial obstructive uropathy. Additional 2 right renal punctate calculi. Noncontrasted stomach and bowel loops appear nonobstructed. Normal appendix. No free fluid/air. Diffuse fatty liver. Gallbladder demonstrates a few tiny gallstones. Remaining liver, pancreas, adrenal glands, kidneys, ureters, bladder, and aorta are unremarkable for noncontrast exam. Osseous structures intact with mild L5-S1 degenerative disc disease and bilateral L3-L5 spondylolysis without listhesis. Impression: 1. 3-4 mm distal right ureter calculus producing partial obstruction. Additional right renal punctate calculi. 2. Incidental fatty liver, tiny gallstones, L5-S1 degenerative disc disease, and L3-L5 spondylolysis without listhesis.
[2022-10-05] MEDS ORDERED: Flomax 0.4 MG PO ONE (16:38)
[2022-10-05] MEDS ORDERED: Flomax 0.4 MG ONE (17:08)
== END 2022-10-05 17:18 | disposition home or self-care (01) ==
LOC: ED 13:27
DX: N13.2 Hydronephrosis with renal and ureteral calculous obstruction (principal); R10.31 Right lower quadrant pain; R11.2 Nausea with vomiting, unspecified; Z79.891 Long term (current) use of opiate analgesic; Z79.899 Other long term (current) drug therapy
CPT/HCPCS: 36000; 36415; 74176; 80053; 81001; 82150; 83690; 85025; 87086; 99284; A9270-GY

== ENCOUNTER 2024-03-26 02:34 | Emergency (ER) | payer BC, OTHER ==
--- NOTE | 2024-03-26 02:48 | ERPHSYRPT ---
- History of Present Illness Time Seen by Provider: 03/26/24 02:47 Source: patient, family Exam Limitations: no limitations Physician History: This is a 49-year-old white male patient of Dr. Kyle who presents to the emergency department by private vehicle escorted by his spouse secondary to posterior base of neck and upper back pain between the patient's shoulders with sharp shooting pain and numbness of the left upper extremities that is intermittent. His symptoms have worsened in the last 24 hours. He denies having any type of trauma that he recalls could have caused this. He denies chest pain he denies shortness of breath. He has no low back pain. Patient does have a history of prostate issues. Timing/Duration: hour(s) (In the last 24 hours), worse Method of Injury: unknown Quality: sharp Back Pain Location: C-spine, T-spine Severity of Pain-Max: moderate Severity of Pain-Current: moderate Modifying Factors: Improves With: movement Associated Symptoms: other (Numbness intermittent left upper extremity) Previous symptoms: no prior history, no recent treatment Allergies/Adverse Reactions: No Known Drug Allergies Allergy (Verified 10/05/22 13:45) Home Medications: Fexofenadine HCl [Maddy] 30 mg PO DAILY 05/18/18 [History] Modafinil 100 mg [Provigil 100MG Tablet] 200 mg PO DAILY 05/18/18 [History] Indomethacin 25 mg [Indocin 25 MG] 1 tab PO TID 10/05/22 [History] Hx Tetanus, Diphtheria Vaccination/Date Given: Yes Hx Influenza Vaccination/Date Given: No Hx Pneumococcal Vaccination/Date Given: No Travel Risk - International Travel Have you traveled outside of the country in past 3 weeks: No - Emerging Infectious Disease Are you exhibiting symptoms associated with any current EIDs: No - Review of Systems Constitutional: No Symptoms Eyes: No Symptoms Ears, Nose, & Throat: No Symptoms Respiratory: No Symptoms Cardiac: No Symptoms Abdominal/Gastrointestinal: No Symptoms Genitourinary Symptoms: No Symptoms Musculoskeletal: Back Pain (Upper thoracic), Neck Pain Skin: No Symptoms Neurological: Other (Intermittent numbness left upper extremity) Psychological: No Symptoms Endocrine: No Symptoms Hematologic/Lymphatic: No Symptoms Immunological/Allergic: No Symptoms All Other Systems: Reviewed and Negative - Past Medical History Pertinent Past Medical History: Yes Neurological History: No Pertinent History ENT History: No Pertinent History Cardiac History: No Pertinent History Respiratory History: No Pertinent History Endocrine Medical History: No Pertinent History Musculoskeletal History: Other GI Medical History: No Pertinent History History: No Pertinent History Psycho-Social History: No Pertinent History Male Reproductive Disorders: No Pertinent History Other Medical History: Unsure of musculoskeletal hx - Past Surgical History Past Surgical History: Yes Neuro Surgical History: No Pertinent History Cardiac: No Pertinent History Respiratory: No Pertinent History Gastrointestinal: No Pertinent History Genitourinary: No Pertinent History Musculoskeletal: Other Male Surgical History: No Pertinent History Other Surgical History: left calf, bone spur in tendon - Social History Smoking Status: Never smoker Exposure to second hand smoke: No Drug Use: none Patient Lives Alone: No - Nursing Vital Signs Nursing Vital Signs: Initial Vital Signs Pulse Rate 74 03/26/24 02:37 Respiratory Rate 20 03/26/24 02:37 Blood Pressure 134/77 03/26/24 02:37 O2 Sat by Pulse Oximetry 98 03/26/24 02:37 Pain Scale Pain Intensity [Upper Back] 10 Pain Intensity 4 - Physical Exam General Appearance: mild distress, alert, anxiety Eye Exam: PERRL/EOMI, eyes nml inspection Ears, Nose, Throat Exam: normal ENT inspection, moist mucous membranes Neck Exam: normal inspection, non-tender, supple, full range of motion Respiratory Exam: airway intact, No chest tenderness, No respiratory distress Gastrointestinal Exam: No tenderness Rectal Exam: not done Back Exam: normal inspection, normal range of motion, No CVA tenderness, No vertebral tenderness Extremity Exam: normal inspection, normal range of motion, pelvis stable, No deformities Neurologic Exam: alert, 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, cooperative, lab clerk II-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 nml as tested, nml cerebellar function, nml station & gait, sensation nml Skin Exam: normal color, warm, dry Lymphatic Exam: No adenopathy SpO2 Interpretation: normal O2 Delivery: Room Air - Course Nursing assessment & vital signs reviewed: Yes Ordered Tests: Active Orders 24 hr Category Date Time Status IV Insertion STAT Care 03/26/24 02:50 Active CERVICAL SPINE WO CONTRAST [CT] Stat Exams 03/26/24 02:49 Completed THORACIC SPINE W/O CONTRAST [CT] Stat Exams 03/26/24 02:49 Completed CBC W DIFF Stat Lab 03/26/24 03:16 Completed CMP Stat Lab 03/26/24 03:16 Completed Medication Summary Discontinued Medications Generic Name Dose Route Start Last Admin Trade Name Josh PRN Reason Stop Dose Admin Methylprednisolone Sodium 0 mg 03/26/24 02:54 03/26/24 03:03 Succinate 125 mg/ Sterile IV 03/26/24 02:55 125 mg Water 2 ml STAT ONE Administration Hydromorphone HCl 0.5 mg 03/26/24 02:53 03/26/24 03:03 Hydromorphone 1 Mg/1ml Inj IV 03/26/24 02:54 0.5 mg STAT ONE Administration Hydromorphone HCl Confirm 03/26/24 03:00 Hydromorphone 1 Mg/1ml Inj Administered 03/26/24 03:01 Dose 1 mg .ROUTE .STK-MED ONE Lorazepam 1 mg 03/26/24 02:56 03/26/24 03:04 Lorazepam 2 Mg/1 Ml 2 Mg Vial IV 03/26/24 02:57 1 mg STAT ONE Administration Lorazepam Confirm 03/26/24 03:00 Lorazepam 2 Mg/1 Ml 2 Mg Vial Administered 03/26/24 03:01 Dose 2 mg .ROUTE .STK-MED ONE Methylprednisolone Sodium Succinate Confirm 03/26/24 03:00 Methylprednis Sod Succ 125 Mg/2 Ml Vial Administered 03/26/24 03:01 Dose 125 mg .ROUTE .STK-MED ONE Ondansetron HCl 4 mg 03/26/24 02:53 03/26/24 03:03 Ondansetron Hcl 4 Mg/2 Ml Vial IV 03/26/24 02:54 4 mg STAT ONE Administration Ondansetron HCl Confirm 03/26/24 02:59 Ondansetron Hcl 4 Mg/2 Ml Vial Administered 03/26/24 03:00 Dose 4 mg .ROUTE .STK-MED ONE Sterile Water Confirm 03/26/24 02:59 Water For Injection,Sterile 10 Ml Vial Administered 03/26/24 03:00 Dose 10 ml IJ .STK-MED ONE Lab/Rad Data: Laboratory Result Diagrams 03/26/24 03:16 03/26/24 03:16 Laboratory Results 03/26/24 03/26/24 Range/Units 03:16 03:16 WBC 6.0 (4.23-9.07) x10^3/uL RBC 4.66 (4.63-6.08) x10^6/uL Hgb 11.4 L (13.7-17.5) g/dL Hct 36.2 L (40.1-51.0) % MCV 77.7 L (79.0-92.2) fL MCH 24.5 L (25.7-32.2) pg MCHC 31.5 L (32.3-36.5) g/dL RDW 15.8 H (11.6-14.4) % Plt Count 242 (163-337) x10^3/uL MPV 11.2 (9.4-12.4) fL Gran % 58.1 (34.0-67.9) % Immature Gran % (Auto) 1.0 H (0.001-0.429) % Nucleat RBC Rel Count 0.0 (0.00-0.2) % Eos # (Auto) 0.19 (0.04-0.54) x10^3/uL Immature Gran # (Auto) 0.06 H (0.001-0.031) x10^3u/L Absolute Lymphs (auto) 1.68 (1.32-3.57) x10^3/uL Absolute Monos (auto) 0.49 (0.30-0.82) x10^3/uL Absolute Nucleated RBC 0.00 (0.00-0.012) x10^3u/L Lymphocytes % 28.2 (21.8-53.1) % Monocytes % 8.2 (5.3-12.2) % Eosinophils % 3.2 (0.8-7.0) % Basophils % 1.3 H (0.2-1.2) % Absolute Granulocytes 3.46 (1.78-5.38) x10^3/uL Basophils # 0.08 (0.01-0.08) x10^3/uL Sodium 140 (135-145) mmol/L Potassium 3.9 (3.5-5.1) mmol/L Chloride 105 (98-107) mmol/L Carbon Dioxide 23 (22-30) mmol/L Anion Gap 15.9 H (5-15) MEQ/L BUN 14 (9-20) mg/dL Creatinine 1.08 (0.66-1.25) mg/dL Estimated GFR 85.2 ML/MIN Glucose 149 H (74-106) mg/dL Calcium 9.4 (8.4-10.2) mg/dL Total Bilirubin 0.30 (0.2-1.3) mg/dL AST 50 (17-59) U/L ALT 72 H (0-50) U/L Alkaline Phosphatase 90 (38-126) U/L Serum Total Protein 7.3 (6.3-8.2) g/dL Albumin 4.3 (3.5-5.0) g/dL - Progress Progress: improved, pain not gone completely Progress Note: 03/26/24 03:37 My medical decision making and the assignment of low to moderate complexity is based on review of the patient's past medical history, review of the patient's medication list, reviewed patient drug allergy list, history present illness and physical findings on examination. The workup includes CT scan of cervical spine, CT scan of thoracic spine, CBC, CMP, intravenous line placement, infusion of Dilaudid, infusion of Ativan, infusion of Zofran, infusion of Solu-Medrol. Differential diagnosis includes but is not limited to pinched nerve, bulging disc, severe degenerative disc disease 03/26/24 05:05 After the medication provided this patient, he states his pain has improved significantly but not completely resolved. I interpreted the patient's laboratory data results. Based on the laboratory data results, there are no acute, emergent medical issues. The CT scan of the cervical spine was interpreted by the radiologist and the results are as follows: 1. Straightened cervical curve 2. Multilevel anterior and posterior osteophytes 3. Unconvertebral joint hypertrophy with hypertrophic arthropathy. 4. Neuroforaminal stenosis C5-C6, C7-T1 (right greater than left). 5. Atlantoaxial degenerative changes. 6. No acute fracture or subluxation. The CT scan of the cervical spine was interpreted by the radiologist and the results are as follows: 1. Mild thoracic spondylosis. 2. No acute osseous abnormality Counseled pt/family regarding: lab results, diagnosis, need for follow-up, rad results Medical Desision Making - Independent Historian Additional History obtained from: Spouse - Diagnostic Testing Diagnostic test were ordered, analyzed, and reviewed by me: Yes Radiological Interpretation: Reviewed by me, Teleradiologist Report - Risk of complications The pt has a mod risk of morbidity or mortality based on: Need for prescription drug management - Departure Departure Disposition: Home Clinical Impression: Neuroforaminal stenosis of cervical spine, Thoracic spondylosis Condition: Stable Critical Care Time: No Referrals: TONY KYLE MD [Primary Care Provider] - Follow up/PCP as directed Additional Instructions: Take your medications as prescribed. Call your primary care provider tomorrow, 03/27/2024, to make arrangements for follow-up appointment to be seen in the next 2 to 3 days and discuss possible referral to a neurosurgeon/medical reimbursement specialist Prescriptions: Oxycodone HCl/Acetaminophen [Percocet 5-325 mg Tablet] 1 each PO Q8H PRN PRN #6 tablet MDD 3 PRN Reason: Moderate To Severe Pain Prednisone 10 mg [Deltasone 10 mg] 10 mg PO TID #12 tablet Orphenadrine Citrate 100 mg [Norflex 100 MG Tablet] 100 mg PO BID #10 tab
[2024-03-26 02:52] VITALS: RESP 20; TEMP 96.1
[2024-03-26] MEDS ORDERED: Zofran 4 MG/2 ML VIAL ONE (02:59)
[2024-03-26] MEDS ORDERED: Sterile H2O 10 ml IJ ONE (02:59)
[2024-03-26] MEDS ORDERED: solu-MEDROL ONE (03:00)
[2024-03-26] MEDS ORDERED: Hydromorphone 1 mg/ml Injection ONE (03:00)
[2024-03-26] MEDS ORDERED: Ativan 2 MG/1 ML VIAL ONE (03:00)
[2024-03-26] MEDS: solu-MEDROL 125 MG, Sterile H2O 10 ml 2 ML IV ONE (03:03)
[2024-03-26] MEDS: Zofran 4 MG/2 ML VIAL IV ONE (03:03)
[2024-03-26] MEDS: Hydromorphone 1 mg/ml Injection IV ONE (03:03)
[2024-03-26] MEDS: Ativan 2 MG/1 ML VIAL IV ONE (03:04)
[2024-03-26 03:18] LABS: Absolute Neutrophil Ct (ANC) 3.46 x10^3/uL (1.78-5.38); BASOPHIL % 1.3 % (0.2-1.2); Basophil (Absolute #) 0.08 x10^3/uL (0.01-0.08); Eosinophil % 3.2 % (0.8-7.0); Eosinophil (Absolute #) 0.19 x10^3/uL (0.04-0.54); Hematocrit 36.2 % (40.1-51.0); Hemoglobin 11.4 g/dL (13.7-17.5); IMMATURE GRAN # 0.06 x10^3u/L (0.001-0.031); Lymphocyte (Absolute #) 1.68 x10^3/uL (1.32-3.57); Lymphocytes % 28.2 % (21.8-53.1); Mean Cell Volume 77.7 fL (79.0-92.2); Mean Corpuscular Hemoglobin 24.5 pg (25.7-32.2); Mean Corpuscular Hgb Concent. 31.5 g/dL (32.3-36.5); Mean Platelet Volume 11.2 fL (9.4-12.4); Monocyte (Absolute #) 0.49 x10^3/uL (0.30-0.82); Monocytes % 8.2 % (5.3-12.2); Neutrophil % 58.1 % (34.0-67.9); Platelet Count 242 x10^3/uL (163-337); Red Blood Count 4.66 x10^6/uL (4.63-6.08); Red Cell Distribution Width 15.8 % (11.6-14.4)
[2024-03-26 03:32] LABS: ALBUMIN 4.3 g/dL (3.5-5.0); ANION GAP 15.9 MEQ/L (5-15); BILIRUBIN,TOTAL 0.3 mg/dL (0.2-1.3); Calcium 9.4 mg/dL (8.4-10.2); Creatinine 1 1.08 mg/dL (0.66-1.25); EST GLOMERULAR FILTRATION RATE 85.2 ML/MIN; Potassium 3.9 mmol/L (3.5-5.1); Total Protein 7.3 g/dL (6.3-8.2)
--- NOTE | 2024-03-26 04:35 | XRAY ---
CLINICAL HISTORY: Neck pain COMPARISON: None. TECHNIQUE: Multiple axial images of CT thoracic spine without contrast was submitted in bone and soft tissue window with coronal and sagittal reformats. One of the following dose reduction techniques were utilized for this exam: Automated exposure control, adjustment of the mA and/or kV according to patient size, and use of iterative reconstruction. CTDI: 57.04mGy, DLP: 2409.88mGy*cm. FINDINGS: Vertebrae: Straightened thoracic vertebrae. No fractures, lytic or sclerotic lesions. Normal bone density without evidence of osteopenia or osteoporosis. Mild thoracic spondylosis evident by small marginal lipping of the opposing vertebral endplates. Intervertebral Discs: Normal height and signal intensity of the intervertebral discs. No evidence of disc herniation, bulging, or significant degeneration. Spinal Canal and Neural Foramina: Spinal canal is of normal caliber with no evidence of spinal stenosis. Neural foramina are patent bilaterally at all levels. Facet Joints: Normal appearance of the facet joints. No evidence of facet arthropathy or significant degenerative changes. Soft Tissues: Normal appearance of the paraspinal soft tissues. No abnormal masses, fluid collections, or signs of inflammation. Suspected hepatic steatosis further ultrasound or dedicated CT abdominal study or advised if clinically indicated. Nonobstructing right renal mid-calyceal stones the largest measures 1.7 mm. IMPRESSION: 1. Mild thoracic spondylosis. 2. No acute osseous abnormality. 3. Suspected hepatic steatosis, further ultrasound, or dedicated CT abdominal study are advised if clinically indicated. 4. Nonobstructing right renal mid calyceal stones the largest measures 1.7 mm. Electronically Signed by: Stella Miranda MD. (03/26/2024 04:30:35 EST)
--- NOTE | 2024-03-26 04:49 | XRAY ---
CLINICAL HISTORY: Neck pain COMPARISON: No previous studies are available for comparison. TECHNIQUE: CT scan of the cervical spine was performed without the administration of intravenous contrast. Contiguous axial images were obtained with coronal and sagittal recontructed images. One of the following dose reduction techniques was utilized for this exam. Automated exposure control, adjustment of the mA and/or kV according to patient size, and use of iterative reconstruction. FINDINGS: Vertebrae: Straightened cervical curve. Multilevel anterior and posterior osteophytes, uncovertebral joint hypertrophy, and hypertrophic facet arthropathy were noted. Multilevel disc osteophyte complexes and facet arthropathy resulting in neural foramina narrowing from C5-6 to C7-T1 levels (right > left). The vertebral bodies are normal in height. The craniovertebral measures are unremarkable. Atlanto-axial degenerative changes. Prevertebral Soft Tissues: The prevertebral soft tissues are normal in thickness without evidence of mass or abnormal fluid collection. Additional Findings: No other significant findings are noted in the visualized soft tissue structures or bony elements. IMPRESSION: 1. Straightened cervical curve. 2. Multilevel anterior and posterior osteophytes, uncovertebral joint hypertrophy, and hypertrophic facet arthropathy were noted. 3. Multilevel disc osteophyte complexes and facet arthropathy resulting in neural foramina narrowing from C5-6 to C7-T1 levels (right > left). 4. Atlanto-axial degenerative changes. Electronically Signed by: Stella Miranda MD. (03/26/2024 04:44:24 EST)
[2024-03-26] MEDS ORDERED: PERCOCET TABLET 5/325MG ONE (05:20)
[2024-03-26] MEDS: PERCOCET TABLET 5/325MG PO STA (05:21)
[2024-03-26 05:36] VITALS: BP 129/74; PULSE 62; O2SAT 96
== END 2024-03-26 05:36 | disposition home or self-care (01) ==
LOC: ED 02:34
DX: M48.02 Spinal stenosis, cervical region (principal); M47.814 Spondylosis without myelopathy or radiculopathy, thoracic region; M54.2 Cervicalgia; M54.6 Pain in thoracic spine; Z79.52 Long term (current) use of systemic steroids; Z79.891 Long term (current) use of opiate analgesic; Z79.899 Other long term (current) drug therapy
CPT/HCPCS: 36000; 36415; 72125; 72128; 80053; 85025; 96374; 96375; 96376; 99284; J1171; J2060; J2405; J2919; A9270-GY

== ENCOUNTER 2024-07-01 10:35 | Emergency (ER) | payer BC, OTHER ==
[2024-07-01 10:55] VITALS: RESP 20; TEMP 98; O2SAT 98
[2024-07-01] MEDS ORDERED: NORCO 5/325 MG ONE (11:13)
[2024-07-01] MEDS: NORCO 5/325 MG PO ONE (11:14)
[2024-07-01] MEDS ORDERED: Kenalog-40 ONE (11:14)
[2024-07-01] MEDS: Kenalog-40 IM ONE (11:15)
--- NOTE | 2024-07-01 11:29 | ERPHSYRPT ---
- History of Present Illness Time Seen by Provider: 07/01/24 10:36 Source: patient Exam Limitations: no limitations Patient Subjective Stated Complaint: Knee pain- Left pain Triage Nursing Assessment: Patient ambulated back to ED with slow and steady gait. Patient A+O X 3. Patient's skin pink, warm and dry. Patient complains of left knee pain that started Wednesday, but has gotten worse. Patient complains of left knee pain 7/10 when ambulating. Left knee noted to swollen. Physician History: 49-year-old male presented in the ER With complains of left knee pain for the last 5 days with progressive worsening. Patient reports no fall or trauma to the knee. Does have some swelling with top of the left knee. Patient reports having off-and-on pain in the joints of lower extremities while he was on Ozempic 2 years ago. He is taking Mounjaro now and recently has increased the dose. has taken ibuprofen with some relief. No fever or chills reported. He has been worked up in the past for this gout which was negative. Allergies/Adverse Reactions: No Known Drug Allergies Allergy (Verified 07/01/24 10:40) Home Medications: Fexofenadine HCl [Maddy] 30 mg PO DAILY 05/18/18 [History] Modafinil 100 mg [Provigil 100MG Tablet] 200 mg PO DAILY 05/18/18 [History] Hx Tetanus, Diphtheria Vaccination/Date Given: Yes Hx Influenza Vaccination/Date Given: No Hx Pneumococcal Vaccination/Date Given: No Travel Risk - International Travel Have you traveled outside of the country in past 3 weeks: No - Emerging Infectious Disease Are you exhibiting symptoms associated with any current EIDs: No - Review of Systems Constitutional: No Symptoms Ears, Nose, & Throat: No Symptoms Respiratory: No Symptoms Cardiac: No Symptoms Musculoskeletal: Arthralgias, Joint Pain, Joint Swelling Skin: No Symptoms Neurological: No Symptoms - Past Medical History Pertinent Past Medical History: Yes Neurological History: No Pertinent History ENT History: No Pertinent History Cardiac History: No Pertinent History Respiratory History: Sleep Apnea Endocrine Medical History: Diabetes Type II Musculoskeletal History: Degenerative Disk Disease GI Medical History: No Pertinent History History: No Pertinent History Psycho-Social History: No Pertinent History Male Reproductive Disorders: No Pertinent History Other Medical History: METFORMIN, PREDIABETIC, - Past Surgical History Past Surgical History: Yes Neuro Surgical History: No Pertinent History Cardiac: No Pertinent History Respiratory: No Pertinent History Gastrointestinal: No Pertinent History Genitourinary: No Pertinent History Musculoskeletal: Other Male Surgical History: No Pertinent History Other Surgical History: left calf, bone spur in tendon - Social History Smoking Status: Never smoker Exposure to second hand smoke: No Drug Use: none Patient Lives Alone: No - Social Determinants of Health Will the patient participate in the screening: Yes Do you worry about a steady place to live?: No Do you have any problems with any of the following?: No known problems In the past 12 months,have you had to go without utilities?: No Transportation Issues: No Has anyone in your support network made you feel unsafe?: No Have you or anyone in your house had to go without enough: No - Nursing Vital Signs Nursing Vital Signs: Initial Vital Signs Temperature 98.0 F 07/01/24 10:43 Pulse Rate 78 07/01/24 10:43 Respiratory Rate 20 07/01/24 10:43 Blood Pressure 144/112 07/01/24 10:43 O2 Sat by Pulse Oximetry 98 07/01/24 10:43 Pain Scale Pain Intensity 7 - Physical Exam General Appearance: no apparent distress Neck Exam: normal inspection, full range of motion Cardiovascular/Respiratory Exam: normal breath sounds, regular rate/rhythm Knees Exam: left knee: bone tenderness, joint effusion, pain, soft tissue tenderness, swelling Ankle Exam: bilateral ankle: non-tender, normal inspection, normal range of m otion, no evidence of injury Neuro/Tendon Exam: normal sensation, normal motor functions Mental Status Exam: alert, 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, cooperative Skin Exam: normal color SpO2 Interpretation: normal SpO2: 98 O2 Delivery: Room Air Ordered Tests: Active Orders 24 hr Category Date Time Status KNEE (3 VIEWS) Stat Exams 07/01/24 11:09 Taken Medication Summary Discontinued Medications Generic Name Dose Route Start Last Admin Trade Name Freq PRN Reason Stop Dose Admin Hydrocodone Bitart/Acetaminophen 2 tab 07/01/24 11:04 07/01/24 11:14 Hydrocodone/Apap 5/325 1 Tab Tablet PO 07/01/24 11:05 2 tab STAT ONE Administration Hydrocodone Bitart/Acetaminophen Confirm 07/01/24 11:13 Hydrocodone/Apap 5/325 1 Tab Tablet Administered 07/01/24 11:14 Dose 2 tab .ROUTE .STK-MED ONE Triamcinolone Acetonide 60 mg 07/01/24 10:57 07/01/24 11:15 Triamcinolone Acetonide 40 Mg/Ml Ml IM 07/01/24 10:58 60 mg STAT ONE Administration Triamcinolone Acetonide Confirm 07/01/24 11:14 Triamcinolone Acetonide 40 Mg/Ml Ml Administered 07/01/24 11:15 Dose 80 mg .ROUTE .STK-MED ONE - Progress Progress: improved, pain not gone completely Progress Note: 07/01/24 11:31 49-year-old is evaluated in the ER for left knee pain and swelling Without fall or trauma. Patient has some suprapatellar effusion. He is given his shot of steroid, symptomatic treatment for pain. Feeling better on reevaluation. I have obtained x-rays which are negative for fracture dislocation reviewed by me, official report is pending.. Patient has workup done for gout in the past which was negative. This could be sprain of the knee, recommended taking Tylenol/ibuprofen as needed and outpatient follow-up with orthopedics for reevaluation. Discussed signs symptoms of worsening needing return to ER which he seems understanding. Stable for discharge. Counseled pt/family regarding: diagnosis, need for follow-up, rad results Medical Desision Making - Diagnostic Testing Diagnostic test were ordered, analyzed, and reviewed by me: Yes Radiological Interpretation: Interpreted by me, Reviewed by me - Risk of complications The pt has a mod risk of morbidity or mortality based on: Need for prescription drug management - Departure Departure Disposition: Home Clinical Impression: Knee sprain Condition: Stable Critical Care Time: No Referrals: TONY KYLE MD [Primary Care Provider] - Follow up with PCP 1 day LEELEE LYON MD [ACTIVE STAFF] - Follow up/PCP as directed Instructions: Knee Sprain (DC) Additional Instructions: Take Tylenol/ibuprofen as needed. Use brace which you have at home . Avoid exertional activities. Follow-up with primary care and orthopedics for r eevaluation. Return to ER for any worsening.
[2024-07-01 11:50] VITALS: BP 147/86; PULSE 70
--- NOTE | 2024-07-01 22:03 | XRAY ---
Indication: Pain and swelling. No known injury. Comparison: None 3 view left knee demonstrates nonspecific effusion. No other bony, articular, or soft tissue abnormalities.
== END 2024-07-01 11:51 | disposition home or self-care (01) ==
LOC: ED 10:35
DX: S83.92XA Sprain of unspecified site of left knee, initial encounter (principal); E11.9 Type 2 diabetes mellitus without complications; Z79.85 Long-term (current) use of injectable non-insulin antidiabetic drugs; Z79.899 Other long term (current) drug therapy
CPT/HCPCS: 73562; 96372; 99283; J3301; A9270-GY